=== PATIENT | male | born 1990 | race Two or more races ===

== ENCOUNTER 2018-10-19 21:38 | Emergency (ER) | payer MEDICAID ==
[~2018-10-19] VITALS: Ht 198.1 cm; Wt 92.5 kg
--- NOTE | 2018-10-19 22:20 | NUR ---
pt bib self for c/o of flu s/sx, febrile, vs stable placed on er bed 12, seen and eval done kayla hudson with orders carried out.
[2018-10-19] MEDS ORDERED: IV NS 0.9% 1,000 ML BAG IV ONE (23:00)
[2018-10-19] MEDS ORDERED: ACETAMINOPHEN 325 MG TABLET PO ONE (23:00)
[2018-10-19] MEDS ORDERED: ACETAMINOPHEN ES 500 MG TABLET ONE (23:02)
--- NOTE | 2018-10-20 00:31 | NUR ---
pt temp rechecked 99.7, kayla hairston to dc home.
--- NOTE | 2018-10-20 00:47 | NUR ---
Patient discharged to home in stable condition. Rx given. Written and verbal after care instructions given. Patient verbalizes understanding of instruction.
[2018-10-20 00:48] VITALS: BP 122/73
== END 2018-10-20 00:49 | disposition home or self-care (01) ==
LOC: ER 21:41
DX: J06.9 Acute upper respiratory infection, unspecified (principal); Z98.890 Other specified postprocedural states; Z60.2 Problems related to living alone
CPT/HCPCS: 71045; 87804 ×2; 99284; A4606; J7030; 87400